=== PATIENT | male | born 2000 | race Caucasian/White ===

== ENCOUNTER 2021-02-27 16:15 | Emergency (ER) | payer BC ==
--- NOTE | 2021-02-27 17:11 | EDM.PDOC ---
<Yana Mayen M - Last Filed: 02/27/21 18:40> ED HPI GENERAL MEDICAL PROBLEM - General Chief Complaint: Gastrointestinal Problem Stated Complaint: HEMRIOD BLEEDING Time Seen by Provider: 02/27/21 17:00 Source of Information: Reports: Patient History Limitations: Reports: No Limitations - History of Present Illness INITIAL COMMENTS - FREE TEXT/NARRATIVE: Patient is a 21 year old male with a PMH significant for asthma who presents to the ED today with rectal bleeding. He states that around 1 hour ago, he noticed he was passing blood from his rectum that looked like dark red clots. He reports it stained through his shorts. He also states it hurts to sit. He reports a history of painful crampy diarrhea over the past 6 months. He is sexually active with female partners and denies any anal penetration. He denies any dizziness, vomiting, fevers, chills, chest pain, shortness of breath, or constipation. Promotes intermittent nausea which is chronic. He smokes 3-5 cigarettes per day, drinks 12 beers per week, and denies any illicit drug use. Denies past surgeries. Denies history of autoimmune diseases or hemorrhoids. Denies allergies. Onset: Today, Sudden Onset Date: 02/27/21 Duration: Hour(s): (1) Associated Symptoms: Reports: Nausea/Vomiting - Related Data Allergies Allergy/AdvReac Type Severity Reaction Status Date / Time seasoal allergies AdvReac respiratory Uncoded 02/27/21 16:59 issues Home Meds: Home Meds Albuterol [Ventolin HFA] 2 puff INH Q4H PRN 02/27/21 [History] ED ROS GENERAL - Review of Systems Review Of Systems: See Below Constitutional: Reports: No Symptoms Respiratory: Reports: No Symptoms Cardiovascular: Reports: No Symptoms GI/Abdominal: Reports: Bloody Stool, Diarrhea, Nausea. Denies: Abdominal Pain, Constipation, Vomiting ED EXAM, GI/ABD - Physical Exam Exam: See Below Exam Limited By: No Limitations General Appearance: Alert, WD/WN, No Apparent Distress, Other (Requests to stand because it hurts to sit) Eyes: Bilateral: Normal Appearance Head: Atraumatic, Normocephalic Neck: Normal Inspection, Supple, Non-Tender, Full Range of Motion Respiratory/Chest: No Respiratory Distress, Lungs Clear, Normal Breath Sounds, No Accessory Muscle Use, Chest Non-Tender Cardiovascular: Normal Peripheral Pulses, Regular Rate, Rhythm, No Edema, No Gallop, No JVD, No Murmur, No Rub GI/Abdominal Exam: Soft, Non-Tender, No Organomegaly, No Distention, No Mass Rectal (Males) Exam: Hemorrhoids, Tenderness, Other (Thrombosed hemorrhoid, external) Extremities: Normal Inspection, Normal Range of Motion, Non-Tender, Normal Capillary Refill, No Pedal Edema Neurological: Alert, Oriented, Normal Cognition, Normal Gait Psychiatric: Normal Affect, Normal Mood Skin Exam: Warm, Dry, Intact, Normal Color Departure - Departure Disposition: Home, Self-Care 01 Clinical Impression: Internal hemorrhoid, bleeding - Discharge Information Instructions: Hemorrhoids, [id number] Forms: ED Department Discharge Additional Instructions: 1.) You may utilize Preparation H, as pain persists. 2.) Follow up with primary care provider regarding visit today, especially if pain persists, bleeding worsens or persists past 10 days. <Anthony Walters - Last Filed: 02/27/21 19:06> Course - Re-Assessments/Exams Free Text/Narrative Re-Assessment/Exam: 02/27/21 18:52 I personally performed or re-performed the physical examination and medical decision making. I have verified all student documentation or findings, including history, physical exam and/or medical decision making. Free Text/Narrative Re-Assessment/Exam: 02/27/21 19:00 Care of pt transferred to Pooja Goff [employer] at shift change. <Pooja Goff - Last Filed: 02/28/21 05:31> ED EXAM, GI/ABD - Physical Exam Rectal (Males) Exam: Normal Rectal Tone, Hemorrhoids (Internal, no external thrombosed hemorrhoid appreciated), Tenderness (No tenderness upon digital rectal exam) Course - Vital Signs Last Recorded V/S: Last Vital Signs Temp 98.4 F 02/27/21 16:46 Pulse 99 02/27/21 16:46 Resp 18 02/27/21 16:46 BP 139/92 H 02/27/21 16:46 Pulse Ox 99 02/27/21 16:46 - Orders/Labs/Meds Labs: Laboratory Tests 02/27/21 02/27/21 Range/Units 17:11 17:11 WBC 15.4 H (5.0-10.0) 10^3/uL RBC 5.11 (4.6-6.2) 10^6/uL Hgb 15.8 (14.0-18.0) g/dL Hct 45.3 (40.0-54.0) % MCV 88.6 (80-100) fL MCH 30.9 (27.0-34.0) pg MCHC 34.9 (33.0-35.0) g/dL Plt Count 227 (150-450) 10^3/uL Neut % (Auto) 70.1 (42.2-75.2) % Lymph % (Auto) 19.4 L (20.5-50.1) % [place] % (Auto) 7.5 (2-8) % Eos % (Auto) 2.7 (1.0-3.0) % Baso % (Auto) 0.3 (0.0-1.0) % ESR 2 (0-15) mm/hr Sodium 141 (136-145) mmol/L Potassium 4.0 (3.5-5.1) mmol/L Chloride 103 (98-107) mmol/L Carbon Dioxide 29 (21-32) mmol/L Anion Gap 13.0 (7-13) mEq/L BUN 10 (7-18) mg/dL Creatinine 1.02 (0.70-1.30) mg/dL Est Cr Clr Drug Dosing TNP Estimated GFR (MDRD) > 60 BUN/Creatinine Ratio 9.8 (No establ ref range) Glucose 88 (70-99) mg/dL Calcium 9.1 (8.5-10.1) mg/dL Total Bilirubin 0.5 (0.2-1.0) mg/dL AST 17 (15-37) U/L ALT 29 (16-63) U/L Alkaline Phosphatase 57 (46-116) U/L C-Reactive Protein 0.7 (0.0-0.9) mg/dL Total Protein 7.6 (6.4-8.2) g/dL Albumin 4.2 (3.4-5.0) g/dL Globulin 3.4 Albumin/Globulin Ratio 1.2 Meds: Medications Discontinued Medications Generic Name Dose Route Start Last Admin Trade Name Freq PRN Reason Stop Dose Admin Lactated Ringer's 1,000 mls @ 999 mls/hr 02/27/21 18:31 02/27/21 18:58 Ringers, Lactated IV 02/27/21 19:31 999 mls/hr .BOLUS ONE Administration Iopamidol 100 ml 02/27/21 18:30 02/27/21 19:03 Iopamidol 612 Mg/Ml 100 Ml Bottle IVPUSH 02/27/21 18:31 100 ml ONETIME ONE Administration Lidocaine HCl 1 gm 02/27/21 20:39 02/27/21 20:51 Lidocaine 5% Oint 35.44 Gm Tube TOP 02/27/21 20:40 1 applic ONETIME ONE Administration - Radiology Interpretation Free Text/Narrative:: [facility] Final Radiology Report Call: [phone] assistance Online chat: [email or web address] Name: NARDA EDWARD Age: 21Years M Date: 02/27/2021 SSN: -- : [id number] Study: CT ABDOMEN PELVIS W CONT Requesting Physician: Yana Mayen Images: [id number] Addl Studies: Provided Clinical History: Rectal bleeding, elevated WBC Contrast: With Contrast Medium: Isovue 300 Contrast Amount: 100 mL Contrast Method: Intravenous (IV) Page 1 of 2 PROCEDURE INFORMATION: Exam: CT Abdomen And Pelvis With Contrast Exam date and time: 02/27/2021 6:54 PM Age: 21 years old Clinical indication: Other: Rectal bleeding; Additional info: Rectal bleeding, elevated wbc TECHNIQUE: Imaging protocol: Computed tomography of the abdomen and pelvis with contrast. Radiation optimization: All CT scans at this facility use at least one of these dose optimization techniques: automated exposure control; mA and/or kV adjustment per patient size (includes targeted exams where dose is matched to clinical indication); or iterative reconstruction. Contrast material: ISOVUE 300; Contrast volume: 100 ml; Contrast route: INTRAVENOUS (IV); COMPARISON: No relevant prior studies available. FINDINGS: Lungs: Lung bases are clear. Liver: There is enlargement of the liver, measuring 18.5 cm. There is a diffuse decrease in hepatic parenchymal density, consistent with fatty infiltration. The liver is otherwise unremarkable. Gallbladder and bile ducts: Normal. No calcified stones. No ductal dilation. Pancreas: Normal. No ductal dilation. Spleen: Normal. No splenomegaly. Adrenal glands: Normal. No mass. Kidneys and ureters: Normal. No hydronephrosis. Stomach and bowel: No bowel obstruction or significant bowel wall thickening. There is mildly excessive colonic stool content. Appendix: A normal appendix is identified. Intraperitoneal space: Unremarkable. No free air. No significant fluid collection. Vasculature: Unremarkable. No abdominal aortic aneurysm. Lymph nodes: Unremarkable. No enlarged lymph nodes. Urinary bladder: Unremarkable as visualized. Reproductive: Unremarkable as visualized. Bones/joints: Unremarkable. No acute fracture. Soft tissues: Unremarkable. IMPRESSION: Negative for acute abdominopelvic pathology. Thank you for allowing us to participate in the care of your patient. Dictated and Authenticated by: Kevin Chase MD 02/27/2021 7:35 PM Central Time ([place] & [place]) - Re-Assessments/Exams Free Text/Narrative Re-Assessment/Exam: 02/27/21 Care of patient assumed by commercial underwriter from Dr. Walters at 1900. Findings of lab work and imaging reviewed with patient. Patient verbalizes an improvement in rectal pain during reassessment. Rectal exam performed by commercial underwriter; blood noted to rectum, but no external hemorrhoids appreciated. Will treat with lidocaine 5% should symptoms return. Discussed supportive cares as well as red flag signs and symptoms which would warrant reevaluation. Patient verbalized understanding and agreement with the plan of care. Departure - Departure Time of Disposition: 20:37 Condition: Good - Discharge Information *PRESCRIPTION DRUG MONITORING PROGRAM REVIEWED*: Not Applicable *COPY OF PRESCRIPTION DRUG MONITORING REPORT IN PATIENT DELLA: Not Applicable
[2021-02-27 17:34] LABS: CHLORIDE,CL 103 mmol/L (98-107); SODIUM,NA 141 mmol/L (136-145)
[2021-02-27] MEDS ORDERED: Iopamidol 612 MG/ML 100 ML Bottle IVPUSH ONE (18:30)
[2021-02-27] MEDS ORDERED: Lactated Ringers 1,000 ML IV ONE (18:31)
--- NOTE | 2021-02-27 19:35 | CT ---
PROCEDURE INFORMATION: Exam: CT Abdomen And Pelvis With Contrast Exam date and time: 02/27/2021 6:54 PM Age: 21 years old Clinical indication: Other: Rectal bleeding; Additional info: Rectal bleeding, elevated wbc TECHNIQUE: Imaging protocol: Computed tomography of the abdomen and pelvis with contrast. Radiation optimization: All CT scans at this facility use at least one of these dose optimization techniques: automated exposure control; mA and/or kV adjustment per patient size (includes targeted exams where dose is matched to clinical indication); or iterative reconstruction. Contrast material: ISOVUE 300; Contrast volume: 100 ml; Contrast route: INTRAVENOUS (IV); COMPARISON: No relevant prior studies available. FINDINGS: Lungs: Lung bases are clear. Liver: There is enlargement of the liver, measuring 18.5 cm. There is a diffuse decrease in hepatic parenchymal density, consistent with fatty infiltration. The liver is otherwise unremarkable. Gallbladder and bile ducts: Normal. No calcified stones. No ductal dilation. Pancreas: Normal. No ductal dilation. Spleen: Normal. No splenomegaly. Adrenal glands: Normal. No mass. Kidneys and ureters: Normal. No hydronephrosis. Stomach and bowel: No bowel obstruction or significant bowel wall thickening. There is mildly excessive colonic stool content. Appendix: A normal appendix is identified. Intraperitoneal space: Unremarkable. No free air. No significant fluid collection. Vasculature: Unremarkable. No abdominal aortic aneurysm. Lymph nodes: Unremarkable. No enlarged lymph nodes. Urinary bladder: Unremarkable as visualized. Reproductive: Unremarkable as visualized. Bones/joints: Unremarkable. No acute fracture. Soft tissues: Unremarkable. IMPRESSION: Negative for acute abdominopelvic pathology.
[2021-02-27] MEDS ORDERED: Lidocaine 5% Oint 35.44 GM Tube TOP ONE (20:39)
== END 2021-02-27 20:52 | disposition home or self-care (01) ==
LOC: DL.ED 16:15
DX: K64.8 Other hemorrhoids (principal); Z91.048 Other nonmedicinal substance allergy status
CPT/HCPCS: 36415; 74177; 80053; 85025; 85651; 86140; 99283; 99284-25; A9270-GY; J7120; Q9967